=== PATIENT | male | born 1960 | race African-American/Black ===

== ENCOUNTER 2024-08-18 20:12 | Emergency (ER) | payer OTHER ==
[2024-08-18] MEDS ORDERED: diphenhydrAMINE 25 MG CAP ONE (20:47)
[2024-08-18 21:47] LABS: #Basophils 0.06 10x3/uL (0.0-0.2); #Eosinophils 0.65 10x3/uL (0.0-0.5); #Monocytes 0.52 10x3/uL (0.0-1.1); #Neutrophils 3.54 10x3/uL (1.5-8.4); %Lymphocytes 18.8 % (18.0-47.0); %Monocytes 8.8 % (0.0-10.0); %Neutrophils 60.2 % (40.0-75.0); Hematocrit 40.6 % (38.8-50.0); Hemoglobin 13.8 g/dL (13.5-17.5); Mean Corpuscular Volume 88.3 fL (81.2-95.1); Mean Platelet Volume 9.1 fL (7.4-10.4); Platelet Count 256 10x3/uL (150-450); RBC Distribution Width 12.3 % (11.5-14.5); White Blood Cell (WBC) Count 5.9 10x3/uL (3.5-10.5)
[2024-08-18 21:48] LABS: INR-International Normal Ratio 1.1; PTT 24.3 sec (22.0-33.0); Prothrombin Time 11.5 sec (9.5-12.1)
[2024-08-18 21:49] LABS: Anion Gap 14 mmol/L (10-20); BUN (Urea Nitrogen) 17 mg/dL (8.4-25.7); Calc. Creatinine Clearance 0 mL/min (70-130); Calcium 9.3 mg/dL (7.8-10.44); Carbon Dioxide 24 mmol/L (23-31); Chloride 105 mmol/L (98-107); Estimated GFR 80; Glucose 146 mg/dL (80-115); Potassium 4.2 mmol/L (3.5-5.1); Sodium 139 mmol/L (136-145)
== END 2024-08-18 23:15 | disposition home or self-care (01) ==
LOC: EEVIPCON 20:12 → CSHERS 20:12
DX: L03.115 Cellulitis of right lower limb (principal); L03.116 Cellulitis of left lower limb; L30.9 Dermatitis, unspecified; I10 Essential (primary) hypertension; Z87.891 Personal history of nicotine dependence
CPT/HCPCS: 36415; 80048; 85025; 85610; 85730